=== PATIENT | female | born 1955 | race Caucasian/White ===

== ENCOUNTER 2017-11-28 16:51 | Outpatient (CLI) | payer BC | END 2017-11-28 16:52 | disposition home or self-care (01) | LOC: BICRAD 16:51 | PROVIDERS: ATTEND Internal Medicine | DX: R05 Cough (principal) | CPT/HCPCS: 71046 ==

== ENCOUNTER 2020-12-23 10:14 | Outpatient (CLI) | payer BC, MEDICARE | END 2020-12-23 10:15 | disposition home or self-care (01) | LOC: BICMAMMO 10:14 | PROVIDERS: ATTEND Internal Medicine | DX: Z12.31 Encounter for screening mammogram for malignant neoplasm of breast (principal); Z80.3 Family history of malignant neoplasm of breast; Z91.89 Other specified personal risk factors, not elsewhere classified | CPT/HCPCS: 77063; 77067 ==

== ENCOUNTER 2021-09-17 14:06 | Outpatient (CLI) | payer MEDICARE, BC ==
[2021-09-17 16:57] LABS: #Basophils 0.1 10x3/uL (0.0-0.2); #Eosinphils 0.1 10x3/uL (0.0-0.5); #Monocytes 0.6 10x3/uL (0.0-1.1); #Neutrophils 4.6 10x3/uL (1.5-8.4); %Basophils 0.6 % (0.0-2.0); %Lymphocytes 32.4 % (18.0-47.0); %Monocytes 7.5 % (0.0-10.0); %Neutrophils 58.2 % (40.0-75.0); Hemoglobin 13.4 g/dL (12.0-15.5); Mean Corpuscular HGB CONC 32.8 g/dL (32.0-36.0); Mean Corpuscular Hemoglobin 28.7 pg (27.0-33.0); Mean Corpuscular Volume 87.6 fl (81.6-98.3); Mean Platelet Volume 9.7 fl (7.4-10.4); Platelet Count 289 10x3/uL (150-450); RBC Distribution Width 13.3 % (11.5-14.5); Red Blood Cell (RBC) Count 4.67 10x6/uL (3.90-5.03); White Blood Cell (WBC) Count 7.8 10x3/uL (3.5-10.5)
[2021-09-17 17:13] LABS: Anion Gap 13 mmol/L (10-20); BUN (Urea Nitrogen) 10 mg/dL (9.8-20.1); Calc. Creatinine Clearance 0 mL/min (70-130); Carbon Dioxide 24 mmol/L (23-31); Chloride 104 mmol/L (98-107); Potassium 4.1 mmol/L (3.5-5.1); Sodium 137 mmol/L (136-145)
[2021-09-17 17:14] LABS: Calcium 9.4 mg/dL (7.8-10.44); Glucose 87 mg/dL (80-115)
[2021-09-18 00:50] LABS: SARS-CoV-2 PCR by NAA Not Detected (NotDetected)
== END 2021-09-17 14:07 | disposition home or self-care (01) ==
LOC: LABBT 14:06
PROVIDERS: ATTEND Surgery
DX: Z01.812 Encounter for preprocedural laboratory examination (principal); T81.49XA Infection following a procedure, other surgical site, initial encounter; Z20.822 Contact with and (suspected) exposure to COVID-19
CPT/HCPCS: 80048; 85025; U0003; U0005

== ENCOUNTER 2021-09-20 10:03 | Day surgery (SDC) | payer MEDICARE, BC ==
[2021-09-17 14:50] VITALS: BMI 22.1
[2021-09-20] MEDS ORDERED: Fentanyl 250 MCG/5 ML VIAL ONE ×2 (10:45→14:10)
[2021-09-20] MEDS ORDERED: Midazolam HCl 2 mg/2 ml Vial ONE (11:42)
[2021-09-20] MEDS ORDERED: Meropenem 1 GM in Sodium Chloride 0.9% 100 ML IVPB SCH (12:00)
[2021-09-20] MEDS ORDERED: PHENYLEPHRINE-NS 100 MCG/ML 10 ML SYRINGE ONE (12:24)
[2021-09-20] MEDS ORDERED: Lidocaine 1% PF 5 ML VIAL ONE (12:24)
[2021-09-20] MEDS ORDERED: Dexamethasone 20 MG/5 ML VIAL ONE (12:24)
[2021-09-20] MEDS ORDERED: PROPOFOL 200 MG/20 ML VIAL ONE (12:24)
[2021-09-20] MEDS ORDERED: Ketorolac Tromethamine 30 MG/ML VIAL ONE (12:24)
[2021-09-20] MEDS ORDERED: Rocuronium Bromide 10 MG/ML (10ML VIAL) ONE (12:24)
[2021-09-20] MEDS ORDERED: Ondansetron PF 4 MG/2 ML Vial ONE (12:24)
[2021-09-20] MEDS ORDERED: GLYCOPYRROLATE/PF 0.2 MG/ML VIAL ONE (12:24)
[2021-09-20] MEDS ORDERED: Bupivacaine 0.25% HCL 30 ML VIAL ONE (12:41)
[2021-09-20] MEDS ORDERED: Ondansetron ODT 4 MG TAB ONE (17:22)
== END 2021-09-20 17:55 | disposition home or self-care (01) ==
LOC: SDC 10:03
PROVIDERS: ATTEND Surgery
PROC: 0WPF0JZ Removal of Synthetic Substitute from Abdominal Wall, Open Approach (ICD-10-PCS; principal; 2021-09-20)
DX: T85.79XA Infection and inflammatory reaction due to other internal prosthetic devices, implants and grafts, initial encounter (principal); Z79.2 Long term (current) use of antibiotics; Z88.0 Allergy status to penicillin; Z88.5 Allergy status to narcotic agent; Z91.013 Allergy to seafood; Z91.040 Latex allergy status; Z90.49 Acquired absence of other specified parts of digestive tract; Y81.1 Therapeutic (nonsurgical) and rehabilitative general- and plastic-surgery devices associated with adverse incidents
CPT/HCPCS: 10180; 11008; J3490; J1100; J1885; J2185; J2250; J2405; J2704; J3010; Q0162; S0020

== ENCOUNTER 2022-03-17 10:58 | Outpatient (CLI) | payer MEDICARE, BC ==
[2022-03-17 11:45] LABS: #Eosinphils 0.1 10x3/uL (0.0-0.5); #Monocytes 0.4 10x3/uL (0.0-1.1); #Neutrophils 2.5 10x3/uL (1.5-8.4); %Basophils 0.8 % (0.0-2.0); %Eosinophils 1.7 % (0.0-6.0); %Lymphocytes 42.9 % (18.0-47.0); %Monocytes 7.1 % (0.0-10.0); %Neutrophils 47.3 % (40.0-75.0); Hemoglobin 14.4 g/dL (12.0-15.5); Mean Corpuscular HGB CONC 33.7 g/dL (32.0-36.0); Mean Corpuscular Hemoglobin 29.1 pg (27.0-33.0); Mean Corpuscular Volume 86.3 fl (81.6-98.3); Mean Platelet Volume 9.2 fl (7.4-10.4); Platelet Count 255 10x3/uL (150-450); RBC Distribution Width 13.3 % (11.5-14.5); Red Blood Cell (RBC) Count 4.95 10x6/uL (3.90-5.03); White Blood Cell (WBC) Count 5.3 10x3/uL (3.5-10.5)
[2022-03-17 12:06] LABS: Anion Gap 12 mmol/L (10-20); BUN (Urea Nitrogen) 10 mg/dL (9.8-20.1); Calc. Creatinine Clearance 0 mL/min (70-130); Calcium 9.6 mg/dL (7.8-10.44); Carbon Dioxide 25 mmol/L (23-31); Chloride 105 mmol/L (98-107); Estimated GFR 75; Glucose 143 mg/dL (80-115); Potassium 4.1 mmol/L (3.5-5.1); Sodium 138 mmol/L (136-145)
== END 2022-03-17 10:59 | disposition home or self-care (01) ==
LOC: LABBT 10:58
PROVIDERS: ATTEND Surgery
DX: K43.2 Incisional hernia without obstruction or gangrene (principal); Z20.822 Contact with and (suspected) exposure to COVID-19
CPT/HCPCS: 80048; 85025; 87811

== ENCOUNTER 2022-03-22 06:05 | Day surgery (SDC) | payer MEDICARE, BC ==
[2022-03-21 10:00] VITALS: BMI 23.0
[2022-03-22] MEDS ORDERED: Bupivacaine/Epinephrine 0.25% 30 ML VIAL ONE (06:39)
[2022-03-22] MEDS ORDERED: SUGAMMADEX SODIUM 200 MG/2 ML VIAL ONE (06:55)
[2022-03-22] MEDS ORDERED: fentaNYL Citrate/PF 100 MCG/2 ML SYRINGE ONE (06:55)
[2022-03-22] MEDS ORDERED: Levofloxacin 500 mg/D5W 100 ml Premix Bag ONE (07:20)
[2022-03-22] MEDS ORDERED: PROPOFOL 200 MG/20 ML VIAL ONE (07:35)
[2022-03-22] MEDS ORDERED: Ondansetron PF 4 MG/2 ML Vial ONE (07:35)
[2022-03-22] MEDS ORDERED: Glycopyrrolate 0.2 MG/ML 5 ML SYRINGE ONE ×2 (07:35→11:38)
[2022-03-22] MEDS ORDERED: Neostigmine Methylsulfate 3 MG/3 ML SYRINGE ONE (07:35)
[2022-03-22] MEDS ORDERED: Lidocaine 1% MPF 2 ML VIAL ONE (07:35)
[2022-03-22] MEDS ORDERED: Dexamethasone 20 MG/5 ML VIAL ONE (07:35)
[2022-03-22] MEDS ORDERED: Rocuronium Bromide 10 MG/ML (10ML VIAL) ONE (07:35)
[2022-03-22] MEDS ORDERED: Ketorolac Tromethamine 30 MG/ML VIAL ONE (07:35)
[2022-03-22] MEDS ORDERED: Fentanyl 100 MCG/2 ML VIAL ONE ×2 (09:03→09:19)
[2022-03-22] MEDS ORDERED: HYDROmorphone 0.5 MG/0.5 ML SYRINGE ONE ×2 (09:40→09:55)
[2022-03-22] MEDS ORDERED: Promethazine HCl 25 MG/ML VIAL ONE (11:26)
== END 2022-03-22 14:47 | disposition home or self-care (01) ==
LOC: SDC 06:05
PROVIDERS: ATTEND Surgery
PROC: 0WUF4JZ Supplement Abdominal Wall with Synthetic Substitute, Percutaneous Endoscopic Approach (ICD-10-PCS; principal; 2022-03-22)
DX: K43.2 Incisional hernia without obstruction or gangrene (principal); Z88.0 Allergy status to penicillin; Z91.013 Allergy to seafood; Z91.040 Latex allergy status
CPT/HCPCS: C1781; J1100; J1170; J1885; J1956; J2405; J2550; J2704; J3010

== ENCOUNTER 2022-09-29 06:48 | Inpatient (IN) | payer MEDICARE, BC ==
[2022-09-29 08:09] LABS: #Eosinphils 0.1 thou/uL (0.0-0.7); #Lymphocytes 1.5 thou/uL (1.20-3.40); #Monocytes 0.4 thou/uL (0.11-0.59); #Neutrophils 2.6 thou/uL (1.40-6.50); %Basophils 0.7 % (0.0-1.0); %Eosinophils 1.4 % (0.0-10.0); %Lymphocytes 32.6 % (21.0-51.0); %Monocytes 8.3 % (0.0-10.0); Hemoglobin 13.6 g/dL (12.0-16.0); Mean Corpuscular HGB CONC 33.4 g/dL (32.0-36.0); Mean Corpuscular Hemoglobin 30.6 pg (27.0-31.0); Mean Corpuscular Volume 91.8 fl (78.0-98.0); Mean Platelet Volume 7.2 fL (7.4-10.4); Platelet Count 229 10x3/uL (130-400); Red Blood Cell (RBC) Count 4.44 mill/uL (4.20-5.40); White Blood Cell (WBC) Count 4.5 10x3/uL (4.8-10.8)
[2022-09-29 08:18] LABS: PTT 28.2 sec (22.9-36.1); Prothrombin Time 13.5 sec (12.0-14.7)
[2022-09-29] MEDS ORDERED: Meclizine HCl 25 MG TAB ONE (08:22)
[2022-09-29 08:39] LABS: ALT (SGPT) 10 U/L (8-55); AST (SGOT) 15 U/L (5-34); Albumin 3.7 g/dL (3.4-4.8); Alkaline Phosphatase 64 U/L (40-110); Anion Gap 12 mmol/L (10-20); BUN (Urea Nitrogen) 12 mg/dL (9.8-20.1); Bilirubin, Total 0.5 mg/dL (0.2-1.2); Calc. Creatinine Clearance 0 mL/min (70-130); Carbon Dioxide 22 mmol/L (23-31); Chloride 108 mmol/L (98-107); Estimated GFR 81; Globulin 2.6 g/dL (2.4-3.5); Glucose 96 mg/dL (80-115); Lipase 24 U/L (8-78); Magnesium 2.1 mg/dL (1.6-2.6); Potassium 4.3 mmol/L (3.5-5.1); Protein, Total 6.3 g/dL (5.8-8.1); Sodium 138 mmol/L (136-145)
[2022-09-29 08:53] LABS: Bilirubin Negative (Negative); Blood, Urine Negative (Negative); Clarity Clear (Clear); Glucose, Urine (Dipstick) Normal (Negative); Ketone, Urine Negative (Negative); Leukocyte Negative Leu/uL (Negative); Nitrite Negative (Negative); Protein, Urine (Dipstick) Negative (Neg-Trace); Urobilinogen Normal mg/dL (Less than 2); pH, Urine 5.5 (5.0-9.0)
[2022-09-29 08:59] LABS: CKMB 0.8 ng/mL (0-6.6)
[2022-09-29 11:49] LABS: Troponin I 0.089 ng/mL (< 0.028)
[2022-09-29] MEDS ORDERED: Iopamidol-370 76% 500 ML 1 ML ONE (12:19)
[2022-09-29] MEDS ORDERED: Ondansetron PF 4 MG/2 ML Vial ONE (14:30)
[2022-09-29 14:39] LABS: Troponin I 0.088 ng/mL (< 0.028)
[2022-09-29] MEDS ORDERED: Ondansetron ODT 4 MG TAB PO PRN (15:05)
[2022-09-29] MEDS ORDERED: Ondansetron PF 4 MG/2 ML Vial IVP PRN (15:05)
[2022-09-29] MEDS ORDERED: hydrALAZINE 20 MG/ML VIAL SLOW IVP PRN (15:05)
[2022-09-29] MEDS ORDERED: Acetaminophen 650 MG Suppository PR PRN (15:05)
[2022-09-29] MEDS ORDERED: Acetaminophen 325 MG TAB PO PRN (15:05)
[2022-09-29] MEDS ORDERED: Meclizine HCl 12.5 MG TAB PO PRN (15:07)
[2022-09-29 15:54] VITALS: BMI 23.9
[2022-09-29] MEDS: Atorvastatin Calcium 40 MG TAB PO SCH (20:20)
[2022-09-30 05:27] LABS: #Eosinphils 0.1 thou/uL (0.0-0.7); #Lymphocytes 2.2 thou/uL (1.20-3.40); #Monocytes 0.5 thou/uL (0.11-0.59); #Neutrophils 2.4 thou/uL (1.40-6.50); %Basophils 0.7 % (0.0-1.0); %Eosinophils 1.3 % (0.0-10.0); %Lymphocytes 42.4 % (21.0-51.0); %Monocytes 9.3 % (0.0-10.0); %Neutrophils 46.3 % (42.0-75.0); Hemoglobin 12.4 g/dL (12.0-16.0); Mean Corpuscular HGB CONC 32.7 g/dL (32.0-36.0); Mean Corpuscular Hemoglobin 30.3 pg (27.0-31.0); Mean Corpuscular Volume 92.5 fl (78.0-98.0); Mean Platelet Volume 7.2 fL (7.4-10.4); Platelet Count 189 10x3/uL (130-400); RBC Distribution Width 11.9 % (11.5-14.5); Red Blood Cell (RBC) Count 4.08 mill/uL (4.20-5.40); White Blood Cell (WBC) Count 5.2 10x3/uL (4.8-10.8)
[2022-09-30 05:49] LABS: Hemoglobin A1c 5.1 % (4.0-6.0)
[2022-09-30 05:51] LABS: Anion Gap 12 mmol/L (10-20); BUN (Urea Nitrogen) 9 mg/dL (9.8-20.1); Calc. Creatinine Clearance 68 mL/min (70-130); Calcium 8.7 mg/dL (7.8-10.44); Carbon Dioxide 20 mmol/L (23-31); Cardiac Risk 2.7 (Less than 4.5); Chloride 108 mmol/L (98-107); Cholesterol 171 mg/dl (< 200 Desired); Estimated GFR 85; Glucose 84 mg/dL (80-115); HDL Cholesterol 64 mg/dL (>60 Neg Risk); LDL Cholesterol, Calculated 98 mg/dL; Potassium 4.3 mmol/L (3.5-5.1); Sodium 136 mmol/L (136-145); Triglycerides 43 mg/dL (Less than 150)
[2022-09-30] MEDS: Aspirin 81 mg Enteric Coated Tablet PO SCH (10:53)
[2022-09-30] MEDS ORDERED: Lidocaine 1% w/Epinephrine 1:100K 20 ML VIAL ONE (13:51)
[2022-09-30] MEDS: Atorvastatin Calcium 40 MG TAB PO SCH (20:38)
[2022-10-01] MEDS: Aspirin 81 mg Enteric Coated Tablet PO SCH (09:39)
[2022-10-01] MEDS: Sodium Chloride 0.9% 1,000 ML IV SCH ×2 (12:31→23:23)
[2022-10-01] MEDS: Atorvastatin Calcium 40 MG TAB PO SCH (19:41)
[2022-10-02] MEDS: Aspirin 81 mg Enteric Coated Tablet PO SCH (09:17)
[2022-10-02] MEDS: Sodium Chloride 0.9% 1,000 ML IV SCH ×2 (09:18→10:25)
[2022-10-02 12:01] VITALS: BP 130/81
[2022-10-02 12:26] VITALS: TEMP 98.1
== END 2022-10-02 15:20 | disposition home or self-care (01) | DRG 42 ==
LOC: ERS 06:48 → ERHOLD 09:43 → NEURO 15:08 → OBSVTOIN 09-30 11:38
PROVIDERS: ADMIT Internal Medicine; ATTEND Internal Medicine
PROC: 0JH602Z Insertion of Monitoring Device into Chest Subcutaneous Tissue and Fascia, Open Approach (ICD-10-PCS; principal; 2022-10-02)
DX: I63.89 Other cerebral infarction (principal); Z20.822 Contact with and (suspected) exposure to COVID-19; I95.1 Orthostatic hypotension; Z91.040 Latex allergy status; Z91.013 Allergy to seafood; Z88.0 Allergy status to penicillin; Z79.82 Long term (current) use of aspirin; Z79.899 Other long term (current) drug therapy; Z90.49 Acquired absence of other specified parts of digestive tract; R47.1 Dysarthria and anarthria; R29.700 NIHSS score 0
CPT/HCPCS: 33285; 36415; 70496; 70498; 70551; 80048; 80053; 80061; 81003; 82553; 83036; 83690; 83735; 84484; 85025; 85610; 85730; 93005; 93306; 96361; 96374; C1764; G0378; J2405; J7050; Q9967; U0003; U0005

== ENCOUNTER 2022-11-23 13:34 | Outpatient (CLI) | payer MEDICARE, BC | END 2022-11-23 13:35 | disposition home or self-care (01) | LOC: BICMAMMO 13:34 | PROVIDERS: ATTEND Family Medicine | DX: Z12.31 Encounter for screening mammogram for malignant neoplasm of breast (principal); Z80.3 Family history of malignant neoplasm of breast | CPT/HCPCS: 77063; 77067; 77080 ==